=== PATIENT | male | born 1970 | race African-American/Black ===

== ENCOUNTER 2017-08-22 21:56 | Emergency (ER) | payer OTHER ==
[~2017-08-22] VITALS: Ht 170.2 cm; Wt 59.9 kg
[2017-08-22 22:09] VITALS: BP 98/60; Ht 170.2 cm; Wt 59.9 kg
== END 2017-08-23 00:35 | disposition left against medical advice (07) ==
LOC: ED 21:56
DX: Z53.21 Procedure and treatment not carried out due to patient leaving prior to being seen by health care provider (principal)

== ENCOUNTER 2017-08-24 05:30 | Emergency (ER) | payer OTHER ==
[~2017-08-24] VITALS: Ht 170.2 cm; Wt 62.6 kg
[2017-08-24 05:37] VITALS: Ht 170.2 cm; Wt 62.6 kg
[2017-08-24 06:47] VITALS: BP 105/72
== END 2017-08-24 06:47 | disposition home or self-care (01) ==
LOC: ED 05:30
DX: S41.112D Laceration without foreign body of left upper arm, subsequent encounter (principal); X58.XXXD Exposure to other specified factors, subsequent encounter

== ENCOUNTER 2017-11-30 06:56 | Emergency (ER) | payer OTHER ==
[~2017-11-30] VITALS: Ht 167.6 cm; Wt 60.9 kg
[2017-11-30 10:39] LABS: BASOPHIL % 0.3 % (0-2); PLATELET COUNT 213 x10^3mcL (130-400)
[2017-11-30 10:40] LABS: RED CELL DISTRIBUTION WIDTH 14.7 % (11.5-14.5)
[2017-11-30 10:51] LABS: CALCIUM 9.1 mg/dL (8.5-10.1); CARBON DIOXIDE 26.4 mmol/L (21-32); CHLORIDE SERUM 103 mmol/L (98-107); GFR1 > 60 mL/min; GLUCOSE SERUM 87 mg/dL (74-106); POTASSIUM SERUM 4.2 mmol/L (3.5-5.1); SODIUM SERUM 136 mmol/L (136-145)
[2017-11-30 12:21] VITALS: BP 112/58
== END 2017-11-30 12:22 | disposition short-term general hospital (02) ==
LOC: ED 06:56
PROVIDERS: Emergency Medicine
DX: N49.2 Inflammatory disorders of scrotum (principal); Z88.1 Allergy status to other antibiotic agents
CPT/HCPCS: J2543; J7050

== ENCOUNTER 2018-07-23 12:51 | Emergency (ER) | payer OTHER ==
[~2018-07-23] VITALS: Ht 167.6 cm; Wt 63.0 kg
[2018-07-23 13:29] VITALS: Ht 167.6 cm; Wt 63.0 kg
[2018-07-23 16:51] VITALS: BP 97/65
== END 2018-07-23 16:51 | disposition home or self-care (01) ==
LOC: ED 12:51
DX: L02.214 Cutaneous abscess of groin (principal); Z98.890 Other specified postprocedural states; Z88.1 Allergy status to other antibiotic agents
CPT/HCPCS: J0690; J2001; J3010